=== PATIENT | male | born 1975 | race Caucasian/White ===

== ENCOUNTER 2024-03-19 02:53 | Emergency (ER) | payer OTHER, SELFPAY ==
[2024-03-19 02:55] VITALS: BP 158/96
--- NOTE | 2024-03-19 03:58 | ED.GENMED ---
History of Present Illness
General
Chief Complaint: Medication Reaction
Source: patient
Exam Limitations: none
Time Seen by Provider: 03/19/24 03:53
Nursing documentation reviewed up to this point in time: agreed with
History of Present Illness
History of Present Illness:
This is a 48-year-old gentleman who states he took a dose of his 's meloxicam on Wednesday and then another dose yesterday morning. He complains of a scratchy throat, feeling of a thick tongue and intermittent generalized itching concerning for
allergic reaction. Symptoms seemed worse yesterday evening and improved with a dose of Benadryl 50 mg at 7 PM. He awoke early this morning with return of scratchy throat and took an additional Benadryl 25 mg at 1 AM. Currently feeling improved
but was worried for return of allergic reaction.
He takes no medicines on a daily basis.
He denies coughing or shortness of breath.
He denies abdominal pain but did pass 1 loose stool yesterday evening.
Past History
Past History
ED Past Medical History: None
ED Past Surgical History: Appendectomy and Urological
Social History
Tobacco: Non-smoker
Personal:
Living: with family
Employment: Employed
Family History
Family History: Other (Prostate CA)
Phy Exam
Physical Exam
Physical Exam:
GENERAL: 48-year-old gentleman appears his stated age, awake and alert, pleasant, appears in no acute distress. Speech is clear.
EYE: anicteric
NECK: Supple, nontender, no meningismus, no significant adenopathy.
ENT: posterior pharynx is clear, there is no edema nor injection nor exudate, oral mucosa is moist. Tongue is midline without edema. TM clear b/l, nares patent.
CARDIAC: Regular rate and rhythm. no murmur.
LUNGS: Clear breath sounds bilaterally, no acute respiratory distress, no wheezes/rales/rhonchi
ABDOMEN: Soft, nondistended, without focal tenderness, no r/g, no cvat. normoactive BS.
NEUROLOGICAL: Alert and oriented x3, no focal neuro deficits. Gait is bernstein and steady.
SKIN: Warm and dry, normal color, skin intact. No rash.
MUSCULOSKELETAL: No C/C/E. peripheral pulses are full and equal b/l. No palpable tenderness.
PSYCH: Normal and appropriate interaction.
Course
Orders/Labs/Results
Orders:
Orders
03/19/24 03:58
Cetirizine HCl [Zyrtec] 10 mg PO NOW STA
Prednisone [Deltasone] 50 mg PO NOW STA
Vital Signs
Initial and Last Documented VS:
Initial Vital Signs
Temp Pulse Resp BP Pulse Ox
98.2 F 76 18 158/96 100
03/19/24 02:55 03/19/24 02:55 03/19/24 02:55 03/19/24 02:55 03/19/24 02:55
Last Documented Vital Signs
Temp Pulse Resp BP Pulse Ox
98.2 F 76 18 158/96 100
03/19/24 02:55 03/19/24 02:55 03/19/24 02:55 03/19/24 02:55 03/19/24 02:55
MDM/Problems Addressed
Differential Diagnosis Includes:
Concern for adverse reaction/allergic reaction to meloxicam.
Overall improved after taking Benadryl.
Recommend he avoid any further doses of meloxicam.
Will add a short course of prednisone along with short course of daily Zyrtec. May continue Benadryl as needed if allergic reaction symptoms recur.
If ineffective prompt return to the ED for further evaluation.
*Pulse Oximetry
Patient hypoxic: no
*Critical Care Note
Total Time (30-74mins, 75-104mins- exclusive of procedures): Not Applicable
ED Attending Note
-
Portions of this chart may have been created with voice recognition software.� Occasional wrong word or��sound alike� substitutions may have occurred due to the inherent limitations of voice recognition software.
Discharge Plan
Departure
Patient Disposition: Home (Routine Discharge)
Date of Disposition: 03/19/24
Time of Disposition: 04:02
Patient with high blood pressure during this ER visit?: Yes
Condition: Good
Discharge Problem:
allergic reaction to meloxicam
Instructions: Adverse Drug Reactions, Adult ED, BLOOD PRESSURE
Prescriptions:
New
prednisone 50 mg tablet
50 mg PO DAILY Qty: 4 0RF
No Action
cvesf-p-kjirootfmzuaj [Beano] 1 TAB tablet
1 tab PO BIDPRN PRN (Reason: gas pressure)
multivitamin with folic acid [Tab-A-Thompson] 1 TABLET tablet
1 tab PO DAILY
hydrocodone-acetaminophen 1 TABLET tablet
1 - 2 tab PO Q4HPRN PRN (Reason: moderate to severe pain) Qty: 20 0RF
Referrals:
Kim Rowe MD [Family Provider] -
Activity Restrictions/Additional Instructions:
Start Claritin 10 mg versus Zyrtec 10 mg once daily and take this for the next week.
Avoid any further doses of meloxicam.
You have been prescribed prednisone to take once daily over the next 4 days.
Interventions
Interventions:
*Risk Screen - Suicide Last Done: 03/19/24 02:55
*Neglect/Abuse Screening Last Done: 03/19/24 02:55
Discharge Date and Time
Print Language: BHUTANESE
[2024-03-19] MEDS: ZYRTEC 10 MG PO (04:31)
[2024-03-19] MEDS: DELTASONE 50 MG PO (04:31)
== END 2024-03-19 04:35 | disposition home or self-care (01) ==
LOC: EMR 02:53
PROVIDERS: EMERGENCY PHYSICIAN Emergency Medicine; FAMILY PHYSICIAN Family Medicine
DX: L29.9 Pruritus, unspecified (principal); T39.395A Adverse effect of other nonsteroidal anti-inflammatory drugs [NSAID], initial encounter; R03.0 Elevated blood-pressure reading, without diagnosis of hypertension
CPT/HCPCS: 99283

== ENCOUNTER → 2024-04-14 07:47 | Outpatient (REF) | payer OTHER, SELFPAY | LOC: RAD 07:47 | PROVIDERS: ATTENDING PHYSICIAN Family Medicine | DX: M54.2 Cervicalgia (principal); M54.12 Radiculopathy, cervical region; M77.11 Lateral epicondylitis, right elbow | CPT/HCPCS: 72052; 73080 ==

== ENCOUNTER → 2024-04-29 08:19 | Outpatient (REF) | payer OTHER, SELFPAY | LOC: MRI 3T 08:19 | PROVIDERS: ATTENDING PHYSICIAN Family Medicine | DX: M54.12 Radiculopathy, cervical region (principal); M54.2 Cervicalgia | CPT/HCPCS: 72141 ==

== ENCOUNTER 2024-06-22 09:28 | Emergency (ER) | payer OTHER, SELFPAY ==
[2024-06-22 09:33] VITALS: BP 139/94
[2024-06-22 09:56] LABS: % Basophils 0.4 % (0-2); % Eosinophils 0.1 % (0-6); % Immature Granulocytes 0.4 % (0-0.5); % Monocytes 8.6 % (1.7-9.3); % Neutrophils 69.5 % (42.2-75.2); Absolute Lymphocytes 1.4 10^3/uL (1.2-3.4); Absolute Monocytes 0.6 10^3/uL (0.1-0.6); Absolute Neutrophils 4.7 10^3/uL (1.4-6.5); Hemoglobin 14.2 g/dL (13.0-18.0); Mean Corp Hgb Conc. 34.6 g/dL (33.0-37.0); Mean Corpuscular Hgb 30.2 pg (27.0-31.0); Mean Corpuscular Volume 87.2 fL (80.0-94.0); Mean Platelet Volume 9.4 fL (7.4-10.4); Nucleated Red Blood Cells % 0 % (-); Platelet Count 258 10^3/uL (130-400); Red Cell Dist. Width 12.9 % (11.5-14.5); White Blood Cell Count 6.8 10^3/uL (4.8-10.8)
[2024-06-22 10:11] LABS: ALT (SGPT) 38 U/L (0-50); AST (SGOT) 28 U/L (17-59); Albumin 4.7 g/dl (3.5-5.0); Alkaline Phosphatase 74 U/L (38-126); Blood Urea Nitrogen 14 mg/dl (9-20); Calcium 10.1 mg/dl (8.4-10.2); Carbon Dioxide 26 mmol/L (22-30); Chloride 104 mmol/L (98-107); Glucose 103 mg/dl (70-99); Potassium 4.5 mmol/L (3.5-5.1); Sodium 141 mmol/L (135-145); Total Bilirubin 0.3 mg/dl (0.2-1.3); Total Protein 7.2 g/dl (6.3-8.2); eGFR > 60.00
[2024-06-22 11:04] VITALS: BP 154/90
--- NOTE | 2024-06-22 11:17 | ED.GENMED ---
History of Present Illness
<Maxwell Gutierrez PA-C - Last Filed: 06/22/24 13:30>
General
Chief Complaint: Numbness
Source: patient and spouse
Time Seen by Provider: 06/22/24 10:54
History of Present Illness
History of Present Illness:
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
is not typical for him. Of note, since the summertime patient has been experiencing diffuse and intermittent bilateral paresthesias noting intermittent symptoms to both hands, feet, abdomen and face. Patient states there does not seem to be any
rhyme or reason to the paresthesia/burning sensation as it will occur very randomly but states it does seem to be a little bit worse at night. Patient has not had any workup for the paresthesia as of today but does have a neurology appointment
scheduled for July 11. Patient does note that he was here in this ER back in March but now believes that the symptoms he came with at that time are related to his symptoms today. Patient denies any fevers or infectious symptoms, new medications
or any other concerns. Social history was noted for 3-4 beers daily, no substance abuse. Family history was noted for an uncle having Parkinson's disease, father from an acute NC.
Past History
<Maxwell Gutierrez PA-C - Last Filed: 06/22/24 13:30>
Past History
ED Past Medical History: None
ED Past Surgical History: Appendectomy and Urological
Social History
Tobacco: Non-smoker
Alcohol: Daily
Drug: None
Personal:
Living: with family
Employment: Employed
Family History
Family History: Other (Prostate CA)
Review of Systems
<Maxwell Gutierrez PA-C - Last Filed: 06/22/24 13:30>
Review of Systems
All Other Systems: ROS reviewed and negative except as documented in HPI and ROS
Phy Exam
<Maxwell Gutierrez PA-C - Last Filed: 06/22/24 13:30>
Physical Exam
Physical Exam:
GENERAL: Alert , in no apparent distress
HEAD: NCAT
EYE: pupils equal and reactive, pupils 4mm b/l
NECK: Supple
ENT: o/p clr, mmm. no tongue deviation/fasiculations
CARDIAC: Regular rate and rhythm, no murmur .
LUNGS: Clear breath sounds bilaterally, no acute respiratory distress, no wheezes/rales/rhonchi
ABDOMEN: Soft, without focal tenderness, no r/g, no cvat
NEUROLOGICAL: Alert and oriented, no focal neuro deficits, RIVERA x 4, 5/5 strength UE/LE b/l, sensation intact to light touch throughout and equal
SKIN: Warm and dry, skin intact.
MUSCULOSKELETAL: No edema, well perfused.
PSYCH: Normal and appropriate interaction.
Scores
<Maxwell Gutierrez PA-C - Last Filed: 06/22/24 13:30>
Heart Failure Risk
Heart Failure Risk Score: Not Applicable
Heart Score for Chest Pain Patients
STEMI patient?: Not applicable
Withdrawal Assessment of Alcohol
Withdrawal Assessment Completed?: Not applicable
Course
<Maxwell Gutierrez PA-C - Last Filed: 06/22/24 13:30>
Orders/Labs/Results
Orders:
Orders
06/22/24 09:32
Electrocardiogram (*1) Urgent
Reason for Study: TIA/Stroke
06/22/24 09:33
EKG- Treatment ONCE
06/22/24 09:42
CMP [Comprehensive Metabolic Panel] Urgent
Complete Blood Count/With Diff Urgent
06/22/24 11:12
Drug Screen, Urine [Urine Drug Abuse Screen] Urgent
Date Specimen was Collected: 06/22/24
Time Specimen was Collected: 11:12
Folate Urgent
Magnesium Urgent
TSH Urgent
Vitamin B12 Urgent
Vitamin D, 25-OH Urgent
06/22/24 11:15
CT Head W/o Iv Contrast Urgent
Comment:
Reason For Exam: diffuse paresthesia, word finding difficulty
Abnormal Lab Results
06/22/24
09:42
Glucose 103 H mg/dl
(70-99)
06/22/24 09:42
06/22/24 09:42
Vital Signs
Initial and Last Documented VS:
Initial Vital Signs
Temp Pulse Resp BP Pulse Ox
98.3 F 80 18 139/94 99
06/22/24 09:33 06/22/24 09:33 06/22/24 09:33 06/22/24 09:33 06/22/24 09:33
Last Documented Vital Signs
Temp Pulse Resp BP Pulse Ox
98.3 F 78 14 154/90 100
06/22/24 09:33 06/22/24 11:15 06/22/24 11:15 06/22/24 11:04 06/22/24 11:04
<Rocky Washington MD - Last Filed: 06/22/24 11:33>
Orders/Labs/Results
Orders:
Orders
06/22/24 09:32
Electrocardiogram (*1) Urgent
Reason for Study: TIA/Stroke
06/22/24 09:33
EKG- Treatment ONCE
06/22/24 09:42
CMP [Comprehensive Metabolic Panel] Urgent
Complete Blood Count/With Diff Urgent
06/22/24 11:12
Drug Screen, Urine [Urine Drug Abuse Screen] Urgent
Date Specimen was Collected: 06/22/24
Time Specimen was Collected: 11:12
Folate Urgent
Magnesium Urgent
TSH Urgent
Vitamin B12 Urgent
Vitamin D, 25-OH Urgent
06/22/24 11:15
CT Head W/o Iv Contrast Urgent
Comment:
Reason For Exam: diffuse paresthesia, word finding difficulty
Abnormal Lab Results
06/22/24
09:42
Glucose 103 H mg/dl
(70-99)
06/22/24 09:42
06/22/24 09:42
Vital Signs
Initial and Last Documented VS:
Initial Vital Signs
Temp Pulse Resp BP Pulse Ox
98.3 F 80 18 139/94 99
06/22/24 09:33 06/22/24 09:33 06/22/24 09:33 06/22/24 09:33 06/22/24 09:33
Last Documented Vital Signs
Temp Pulse Resp BP Pulse Ox
98.3 F 78 14 154/90 100
06/22/24 09:33 06/22/24 11:15 06/22/24 11:15 06/22/24 11:04 06/22/24 11:04
<Maxwell Gutierrez PA-C - Last Filed: 06/22/24 13:30>
MDM/Problems Addressed
Differential Diagnosis Includes:
MS, malignancy, less concern for acute CVA given b/l nature of symptoms, less concern for infectious etiology
MDM/Problems Addressed:
49-year-old male presenting to the emergency department for evaluation of word finding difficulty/difficulty speaking that began this morning acutely but also accompanied with bilateral hand paresthesia. Paresthesias have been ongoing for a few
months, has workup scheduled with neurology this month. Has yet to have workup for the symptoms. No fevers or infectious symptoms. Hemodynamically stable and currently neurologically intact. Based off of presenting symptoms I clinically have
most suspicion for MS as a likely diagnosis. There is also possible patient's alcohol intake could be contributing to symptoms as he does drink 3-4 beers daily. Will check labs, CT of the head and will consult with neurology. Disposition pending
<Maxwell Gutierrez PA-C - Last Filed: 06/22/24 13:30>
*Radiology
Radiology exam reviewed: radiology read reviewed
*Pulse Oximetry
Patient hypoxic: no
*Critical Care Note
Total Time (30-74mins, 75-104mins- exclusive of procedures): Not Applicable
<Maxwell Gutierrez PA-C - Last Filed: 06/22/24 13:30>
Patient Management
Discussion with other providers: Mechanical Planner
Escalation/DeEscalation of care consider admission/obs:
11:15 AM: Neurology is aware and will see the patient when available.
Patient seen by neurology. ER workup without any specific etiology. Patient can be safely discharged home with continued outpatient management. Encouraged cessation of alcohol as I do suspect that there is a possible component of alcohol use as
cause of patient's symptoms. Patient will follow-up with neurology as he has scheduled as well as primary care provider.
ED Attending Note
<Maxwell Gutierrez PA-C - Last Filed: 06/22/24 13:30>
-
Portions of this chart may have been created with voice recognition software.� Occasional wrong word or��sound alike� substitutions may have occurred due to the inherent limitations of voice recognition software.
<Rocky Washington MD - Last Filed: 06/22/24 11:33>
ED Attending Note
Patient seen and examined by attending physician: Yes
I performed the substantive portion of visit, reviewed & personally made and approve the management plan that is documented in note by myself or JOSHUA.: Yes
ED Attending Note:
Patient with migratory paresthesias since the summer. 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 Not describing expressive aphasia just felt like his speech was off may be slurred. Admits to getting very anxious over
it. Symptoms resolved. Currently at baseline. Does drink 3-4 beers a day. Borderline cholesterol.
On exam patient is nontoxic no distress. Speech is normal. Cranial nerves II through XII intact. Denfom-rw-qrxs normal. Bwcv-vd-dlxe normal. Pinprick light touch intact. Graphesthesia is borderline. No drift. No carotid bruit. Heart regular
rate and rhythm no murmur. No respiratory distress.
Impression is migratory paresthesias with some slight transient slurred speech today. Highly doubt CVA or TIA. More suspicious of either a general neurologic issue or electrolyte issue. Workup in progress
Discharge Plan
Departure
Patient Disposition: Home (Routine Discharge)
Date of Disposition: 06/22/24
Time of Disposition: 12:27
Patient with high blood pressure during this ER visit?: Yes
Discharge Problem:
Paresthesia, Word finding difficulty
Instructions: Paresthesia (DC)
Prescriptions:
No Action
mgryr-c-zuzajhfdtwxxo [Beano] 1 TAB tablet
1 tab PO BIDPRN PRN (Reason: gas pressure)
multivitamin with folic acid [Tab-A-Thompson] 1 TABLET tablet
1 tab PO DAILY
hydrocodone-acetaminophen 1 TABLET tablet
1 - 2 tab PO Q4HPRN PRN (Reason: moderate to severe pain) Qty: 20 0RF
prednisone 50 mg tablet
50 mg PO DAILY Qty: 4 0RF
Referrals:
NONE,* [Active] -
Stevie Andersen MD [Active] -
Interventions
Interventions:
*Risk Screen - Suicide Last Done: 06/22/24 09:33
*General Assessment Last Done: 06/22/24 09:33
*Neglect/Abuse Screening Last Done: 06/22/24 09:33
*ED COVID-19 Vaccine History Last Done: 06/22/24 11:11
*Nursing Disposition Last Done: 06/22/24 12:41
ED- Neurological Assessment Last Done: 06/22/24 11:01
Discharge Date and Time
Discharge Date/Time: 06/22/24 12:42
Print Language: PORTUGUESE
--- NOTE | 2024-06-22 11:34 | CON.NEURO ---
Consultation
Order
Date of Consultation: 06/22/24
Requesting Provider: STAR Ontiveros
Reason for Consult: Sensory symptoms
CC: tingling
HPI: This is a 49-year-old RH man who presented to [facility] on 06/22/2024 with language dysfunction.
Mr. Paul endorses 'nerve tingling' all over his body, which has been more pronounced recently. He reports an episode where he had difficulty speaking while reading aloud, lasting for a few minutes, which caused him concern. During this episode, he
experienced numbness in his face and fingers but maintained comprehension. He denies experiencing headache, feeling confused or substituting words but stopped reading sooner than usual.
He states that the tingling is random, symmetric, and more noticeable at night when he is in bed. He denies any history of head trauma with LOC, febrile seizures, encephalitis or migraines. No reports of falls, sphincter dysfunction.
ER VS: 139/94-154/90, 80, afebrile.
EKG: NSR, QTc Int : 433 ms
PDMP: no recently prescribed medications
Labs: Glucose�103, normal CBC, sodium, creatinine
CT head-predominantelly bifrontal atrophy
C spine MRI wo jerry(04/29/2024) minimal posterior bulging of the C5-6 and C6-7 intervertebral discs associated with minimal impingement upon the anterior aspect of the thecal sac without associated cord impingement at each of these levels.
PMH: insomnia
PSH: appendectomy, vasectomy
SH: ; [employer] instructor; former smoker. + ETOH; consumes 12 ounces of coffee daily.
FH: uncle -PD, father-schizophrenia, mother-breast CA
All: Sulfas
ROS:Constitutional: Negative. Negative for chills, fever and unexpected weight change.
HENT: Negative for ear pain, hearing loss, tinnitus and trouble swallowing.
Eyes: Negative. Negative for photophobia, pain and visual disturbance.
Respiratory: Negative for cough, choking and shortness of breath.
Cardiovascular: Negative for chest pain, palpitations and leg swelling.
Gastrointestinal: Negative for abdominal pain and vomiting.
Endocrine: Negative. Negative for cold intolerance.
Genitourinary: Negative for dysuria, flank pain and urgency.
Musculoskeletal: positive for intermittent neck pain
Skin: Negative for rash.
Allergic/Immunologic: Negative. Negative for immunocompromised state.
Neurological: Negative for dizziness, tremors, seizures, speech difficulty, numbness and headaches.
Psychiatric/Behavioral: positive for anxiety, intermittent insomnia
General: Well developed. In no acute distress.
Cardio: Regular rate and rhythm without murmur. Extremities are without cyanosis or edema.
Neuro:
Mental Status: Alert, oriented to person, place, and date. Normal attention and recall. Good fund of knowledge. Follows complex requests across the midline. Comprehension, naming, and repetition intact. Immediate and delayed recall 3/3.
Cranial Nerves: . Pupils are equally round and reactive to light. EOMs full. Visual gill[place] full to confrontation. No ptosis. No nystagmus. V1-V3 intact to light touch and pinprick bilaterally, symmetric. Face symmetric. Normal hearing AU.
The palate elevated well. SCMs and traps 5/5. Tongue midline. No dysarthria. Anxious
Motor: Normal bulk and tone. No pronator or arm drift. Strength 5/5 throughout. No clonus.
Reflexes: 3+ throughout the upper extremities and knees. 2/2 in AJs. Huitron's positive BL Plantar responses flexor bilaterally. Jaw jerk-equivocal.
Sensory: Normal pinprick, vibration and JPS.
Coordination: No dysmetria or tremor.
Gait: deferred
Assessment and Plan:
I. Transient expressive aphasia. Deferential diagnosis includes neurodegenerative, epileptic or mood DO associated.
II. Bifrontal atrophy
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
-Please check vitamin B12, TSH, urine tox, thiamine
-ETOH cessation
-OP brain MRI wo jerry, routine EEG
-Outpatient neuropsychological evaluation
I personally reviewed all radiology and labs along with past medical records pertinent to current medical problems. Total time spent in patient care is 56 minutes.
Thank you for allowing us to participate in the care of this patient. We will continue to follow. Please do not hesitate to contact us with any questions or concerns.
Subjective/Objective
Subjective Data
Date of Service: June 22, 2024
Objective Data
Vital Signs
Temp Pulse Resp BP Pulse Ox
36.8 C 82 18 154/90 100
06/22/24 09:33 06/22/24 11:04 06/22/24 09:33 06/22/24 11:04 06/22/24 11:04
Lab Results
06/22/24 09:42
06/22/24 09:42
Sodium 141 mmol/L (135-145) 06/22/24 09:42
Potassium 4.5 mmol/L (3.5-5.1) 06/22/24 09:42
BUN 14 mg/dl (9-20) 06/22/24 09:42
Glucose 103 mg/dl (70-99) H 06/22/24 09:42
Calcium 10.1 mg/dl (8.4-10.2) 06/22/24 09:42
Patient Allergies
soy Allergy (Verified 06/22/24 09:33)
Unknown
Sulfa (Sulfonamide Antibiotics) Allergy (Verified 06/22/24 09:33)
Unknown
hayfever Allergy (Uncoded 03/19/24 02:59)
Unknown
Medications
-
Home Medications
�Medication �Instructions �Recorded
thbjj-k-olauwantxgtiq (Beano 1 tab PO BIDPRN PRN gas pressure 10/04/20
tablet)
multivitamin with folic acid 400 1 tab PO DAILY 10/04/20
mcg tablet (Tab-A-Thompson)
hydrocodone 5 mg-acetaminophen 325 1 - 2 tab PO Q4HPRN PRN moderate 10/05/20
mg tablet to severe pain #20 tabs
prednisone 50 mg tablet 50 mg PO DAILY #4 tabs 03/19/24
[2024-06-22 11:41] LABS: Magnesium 2.2 mg/dl (1.6-2.3)
[2024-06-22 11:59] LABS: Vitamin D, 25-OH*** 32.5 ng/mL (30-80)
[2024-06-22 12:13] LABS: TSH 1.05 uIU/ml (0.47-4.68)
[2024-06-22 12:49] LABS: Folate 16.7 ng/ml (2.76-20); Vitamin B12 790 pg/ml (239-931)
[2024-06-22 12:55] LABS: Amphetamines Negative (Negative); Barbiturates Negative (Negative); Benzodiazepines Negative (Negative); Buprenorphine Negative (Negative); Cocaine Negative (Negative); Marijuana Negative (Negative); Methadone Negative (Negative); Methamphetamines Negative (Negative); Opiates Negative (Negative); Phencyclidine Negative (Negative); Tricyclic Antidepressants Negative (Negative)
== END 2024-06-22 12:42 | disposition home or self-care (01) ==
LOC: EMR 09:28
PROVIDERS: Physician Assistant Medical; Student in an Organized Health Care Education/Training Program; EMERGENCY PHYSICIAN Emergency Medicine; FAMILY PHYSICIAN Family Medicine; OTHER PHYSICIAN Psychiatry & Neurology Neurology
DX: R20.2 Paresthesia of skin (principal); R47.01 Aphasia; Z87.891 Personal history of nicotine dependence
CPT/HCPCS: 99285; 70450; 80053; 80306; 82306; 82607; 82746; 83735; 84443; 85025; 93005

== ENCOUNTER → 2024-08-01 17:37 | Outpatient (REF) | payer OTHER, SELFPAY | LOC: MRI 3T 17:37 | PROVIDERS: ATTENDING PHYSICIAN Family Medicine | DX: R20.0 Anesthesia of skin (principal); R47.89 Other speech disturbances | CPT/HCPCS: 70553; A9575 ==